=== PATIENT | male | born 1970 | race Caucasian/White ===

== ENCOUNTER 2019-07-29 10:19 | Emergency (ER) | payer BC, SELFPAY ==
[2019-07-29 10:37] VITALS: BP 113/78; PULSE 79; RESP 20; TEMP 37; O2SAT 98
--- NOTE | 2019-07-29 10:40 | ED.URI ---
HPI - URI/Sore Throat General Chief Complaint: Upper Respiratory Infection Stated Complaint: sore throat History of Present Illness HPI Narrative: This is a 49-year-old male comes in complaining of a sore throat states that is been hurting for about 2 days a coworker was positive for strep throat. Patient states his throat is slightly sore denies taking anything since he drinks some warm tea today denies any fever nausea vomiting and/or diarrhea Related Data Allergies Allergy/AdvReac Type Severity Reaction Status Date / Time No Known Allergies Allergy Verified 07/29/19 10:40 Review of Systems Review of Systems: Narrative: CONSTITUTIONAL: Denies fever, chills, or sweats. EYES: Denies visual changes, positive redness, or discharge. ENT: positive rhinorrhea, congestion, positive sore throat, or otalgia. CARDIOVASCULAR:Denies chest pain, palpitations, or edema. RESPIRATORY: Positive cough or dyspnea. GASTROINTESTINAL: Denies abdominal pain, nausea, vomiting, or diarrhea. GENITOURINARY: Denies dysuria or hematuria. SKIN:[Denies rash or itching. MUSCULOSKELETAL:Denies back pain, joint pain, or myalgia. NEUROLOGIC: Denies headache, numbness, or weakness. PSYCHIATRIC:Denies anxiety or depression PMFSH Past Medical History Medical History (Updated 07/30/19 @ 00:00 by Jeremias Louise) Abdominal pain, generalized Social History Social History Smoking status: Never smoker Alcohol intake: current Comments At time as signature, I have reviewed and agree with nursing past medical, social, surgical and family history. Please see nursing chart for further information. There is no relevant family history pertinent to the presenting complaint. Exam Narrative: Exam Narrative: gENERAL:Well-appearing, well-nourished, and in no acute distress. HEAD:Normocephalic, atraumatic. EYES: PERRLA and EOMI. ENT: Nares clear, no rhinorrhea or epistaxis. Mucous membranes moist. Slight pharyngeal erythema nasal drainage NECK: Supple. CHEST: Clear to auscultation. No respiratory distress. HEART: Regular rate and rhythm. No murmur heard. Normal peripheral pulses. ABDOMEN: Soft, nontender, nondistended, normal active bowel sounds. EXTREMITIES: Normal range of motion. No edema. SKIN: Warm, dry, no rash. NEURO: No focal deficits. Alert and oriented x3. Course Vital Signs Vital signs: Vital Signs Temperature 98.6 F 07/29/19 10:37 Pulse Rate 79 07/29/19 10:37 Respiratory Rate 20 07/29/19 10:37 Blood Pressure 113/78 07/29/19 10:37 Pulse Oximetry 98 07/29/19 10:37 Temperature 98.6 F 07/29/19 10:37 Pulse Rate 79 07/29/19 10:37 Respiratory Rate 20 07/29/19 10:37 Blood Pressure 113/78 07/29/19 10:37 Pulse Oximetry 98 07/29/19 10:37 Discharge Plan Discharge Clinical Impression: Pharyngitis, Strep sore throat Patient Disposition: Home, Self-Care Condition: Stable Instructions: Antibiotic Form, Pharyngitis (ED), Strep Throat (ED) Additional Instructions: Change tooth brush in 2 days, gargle warm salt water, drink plenty of fluids Prescriptions: New loratadine [Claritin] 10 mg tablet 10 mg PO DAILY PRN (Reason: allergy symptoms) Qty: 30 RF: 0 amoxicillin 500 mg tablet 500 mg PO Q12H 10 Days Qty: 20 RF: 0 Follow-up/Referrals: Oswaldo Berry MD [Primary Care Provider] - Stand Alone Forms: Work/School Release IP Time of Disposition: 10:53 Discharge Date/Time: 07/29/19 10:58
== END 2019-07-29 10:58 | disposition home or self-care (01) ==
PROVIDERS: Emergency Provider Nurse Practitioner Family; PCP Family Medicine
DX: J02.0 Streptococcal pharyngitis (principal)
CPT/HCPCS: 87880; 99213; G0463

== ENCOUNTER → 2020-11-17 00:07 | Outpatient (CLI) | payer BC, SELFPAY ==
[2020-11-17 16:57] LABS: SARS-CoV-2 RNA PCR Negative
== END ==
PROVIDERS: PCP Family Medicine; Visit Provider Internal Medicine Gastroenterology
DX: Z01.812 Encounter for preprocedural laboratory examination (principal); Z20.822 Contact with and (suspected) exposure to COVID-19
CPT/HCPCS: C9803; U0003; U0005

== ENCOUNTER 2020-11-21 01:51 | Day surgery (SDC) | payer BC, SELFPAY ==
[2020-10-31 13:01] VITALS: BMI 24.0
[2020-11-21 07:48] VITALS: BP 114/85; PULSE 87; RESP 16; TEMP 36.3; O2SAT 97; BMI 24.2
[2020-11-21] MEDS: LACTATED RINGERS 1,000 ML 150 ML IV CONT (08:03)
--- NOTE | 2020-11-21 08:10 | P.CONGI_ITS ---
Assessment and Plan Assessment and plan (1) Hematochezia: Code(s): K92.1 - Melena Status: Acute Assessment and Plan: Patient with hematochezia that occurred 2 months ago. Peers be associated with more difficult hard bowel movement. Given his age of 50, plan is for screening colonoscopy. High-fiber diet is advised. He may benefit from FiberCon supplements. Anusol or similar soothing agent the rectal area is encouraged if needed. Colonoscopy to be performed results will follow separately GI Consult Note Consult date/time: 11/21/20 08:10 HPI: Jose Luis Stringer is a 50 year old male Presents because of rectal bleeding. Patient reports that 2 months ago he had a difficult bowel movement. Apparently strained at stool. Subsequently had bright red blood per rectum. For several weeks subsequently he had rectal discomfort. Burning was identified. Patient initially treated this with [id number] cortisone suppositories. More recently he has tried Vaseline. Over the last 2-3 weeks pain is gone away. He no longer has difficulty. His bowel habits in general a re normal. He denies any change in the color of his stools. There has been no melenic stools. No additional bleeding noted. His family history is noncontributory. Patient reports that his weight appetite are currently normal. Patient is referred for colonoscopy to assess rectal bleeding. Review of Systems Review of Systems: All systems reviewed & are unremarkable except as noted in HPI and below PMFSH Past Medical History Medical History (System 10/16/20 @ 13:43 by Sofi Rivera) Abdominal pain, generalized Encounter for screening for malignant neoplasm of prostate Hematochezia Family History Family History (System 10/16/20 @ 13:43 by Sofi Rivera) Father Patient's father is in good health Mother Family history of type 2 diabetes mellitus Diabetes mellitus Other Hypertension Social History Social History (System 10/16/20 @ 13:43 by Sofi Rivera) Smoking status: Never smoker Alcohol intake: current Alcohol use details: socially Substance use: never Substance use type: does not use Living arrangements: with family Gender identity (if verbalized by the patient): Male Spiritual care concerns: No Meds Home Medications and Allergies Home Medications Medication Instructions Recorded Confirmed Type No Home Medications 10/31/20 11/21/20 History Allergies Allergy/AdvReac Type Severity Reaction Status Date / Time No Known Allergies Allergy Verified 11/21/20 07:46 Vital Signs Vital Signs - 24 hr 11/21/20 07:48 Temperature 97.4 F L Pulse Rate 87 Respiratory Rate 16 Blood Pressure 114/85 Pulse Oximetry 97 Exam Narrative: Exam Narrative: Physical exam reveals patient be alert. Vital signs stable. HEENT exam is unremarkable. Patient is anicteric. Lungs are clear to auscultation and percussion. Heart is without murmur or extra sounds. Abdominal exam bowel sounds are present soft nontender with no organomegaly. Digital external rectal exam is normal.
--- NOTE | 2020-11-21 08:20 | WPDANESEPPF ---
Anes - Initial Pre Proc Eval Procedure: Operation Date: 11/21/20 08:30 Proposed Procedures p Colonoscopy - Rome Tucker MD Date/Time: 11/21/20 08:20 Surgeon: Rome Tucker MD Pre Op Diagnosis: melena Patient Data Age: 50 Gender: M Height: 1.78 m Weight: 76.6 kg Last Vital Signs Temp 97.4 F L 11/21/20 07:48 Pulse 87 11/21/20 07:48 Resp 16 11/21/20 07:48 BP 114/85 11/21/20 07:48 Pulse Ox 97 11/21/20 07:48 Allergies Allergy/AdvReac Type Severity Reaction Status Date / Time No Known Allergies Allergy Verified 11/21/20 07:46 Home Medications Medication Instructions Recorded Confirmed Type No Home Medications 10/31/20 11/21/20 History Patient hx anesthesia problems: none Family hx anesthesia problems: none PMFSH Past Medical History Medical History (System 10/16/20 @ 13:43 by Sofi Rivera) Abdominal pain, generalized Encounter for screening for malignant neoplasm of prostate Hematochezia Family History Family History (System 10/16/20 @ 13:43 by Sofi Rivera) Father Patient's father is in good health Mother Family history of type 2 diabetes mellitus Diabetes mellitus Other Hypertension Social History Social History (System 10/16/20 @ 13:43 by Sofi Rivera) Smoking status: Never smoker Alcohol intake: current Alcohol use details: socially Substance use: never Substance use type: does not use Living arrangements: with family Gender identity (if verbalized by the patient): Male Spiritual care concerns: No Anes - Eval Final PreProcedure Day of Procedure 11/21/20 08:20 Patient weight: normal Heart: regular rate and rhythm Lungs: clear to auscultation Airway: Mallampati scale class II Neurological: alert and oriented Last oral intake: >/= 8 hours ASA classification: I Emergent: no Anesthetic plan: proceed Anesthesia type and monitoring: general GIVS and standard monitoring Informed Consent: The patient's anesthetic plan and its attendant risks and benefits were discussed with the patient/family/POA. Questions were solicited and answers provided to the satisfaction of the patient/family/POA.
[2020-11-21 08:48] VITALS: BP 115/76; PULSE 95; RESP 28; O2SAT 97
[2020-11-21 08:58] VITALS: BP 110/85; PULSE 89; RESP 20; O2SAT 97
[2020-11-21 09:08] VITALS: BP 124/89; PULSE 77; RESP 16; O2SAT 98
== END 2020-11-21 09:26 | disposition home or self-care (01) ==
PROVIDERS: PCP Family Medicine; Visit Provider Internal Medicine Gastroenterology
PROC: 0DJD8ZZ Inspection of Lower Intestinal Tract, Via Natural or Artificial Opening Endoscopic (ICD-10-PCS; CPT 45378; principal; 2020-11-21 08:30)
DX: Z12.11 Encounter for screening for malignant neoplasm of colon (principal); K92.1 Melena; D12.5 Benign neoplasm of sigmoid colon
CPT/HCPCS: 45385; 88305; J2704; J7120

== ENCOUNTER 2020-11-21 23:36 | Emergency (ER) | payer BC, SELFPAY ==
[2020-11-21 23:46] VITALS: BP 138/96; PULSE 86; RESP 16; TEMP 36.7; O2SAT 98
[2020-11-22] VITALS: BP 128/90; PULSE 84; RESP 16; O2SAT 97
[2020-11-22 00:09] LABS: Basophils Absolute Auto 0.1 K/mm3 (0.0-0.1); Basophils Percent Auto 0.4 % (0.2-1.2); Eosinophils Absolute Auto 0.1 K/mm3 (0-0.3); Hematocrit 45.2 % (42.0-52.0); Immature Granulocyte Absolute 0.05 K/mm3 (0.00-0.031); Immature Granulocyte Percent A 0.4 % (0-0.5); Lymphocytes Absolute Auto 3.07 K/mm3 (0.9-3.2); Lymphocytes Percent Auto 24.6 % (18.3-44.2); Mean Corpuscular HGB Conc 33.2 g/dl (32-36); Mean Corpuscular Hemoglobin 30.4 pg (26-34); Mean Corpuscular Volume 91.7 fl (80-100); Mean Platelet Volume 9.8 fl (7.4-10.4); Monocytes Absolute Auto 1.1 K/mm3 (0.1-0.6); Monocytes Percent Auto 8.8 % (2.6-8.5); Neutrophils Absolute Auto 8.1 K/mm3 (1.3-6.7); Neutrophils Percent Auto 64.8 % (45.5-73.1); Platelet Count Result 298 k/mm3 (150-375); Red Blood Count 4.93 M/mm3 (4.6-6.20); Red Cell Distribution Width 12.3 % (11.5-14.5); White Blood Count 12.5 K/mm3 (4.5-10.0)
[2020-11-22 00:10] LABS: Alanine Aminotransferase 22 U/L (4-50); Albumin Level 4.8 g/dL (3.5-5.1); Alkaline Phosphatase 74 U/L (38-126); Anion Gap 12 mmol/L (8-16); Aspartate Amino Transferase 24 U/L (17-59); Bilirubin,Total 0.9 mg/dL (0.2-1.3); Blood Urea Nitrogen 18 mg/dL (9-20); Calcium 9.8 mg/dL (8.4-10.2); Carbon Dioxide 22 mmol/L (22-30); Chloride 106 mmol/L (98-107); Estimated Glomerular Filt Rate > 60; Glucose 124 mg/dL (75-110); Lipase 64 U/L (23-300); Potassium 4.1 mmol/L (3.4-5.0); Sodium 140 mmol/L (137-145)
--- NOTE | 2020-11-22 00:18 | ED.GIBLEED ---
HPI - GI Bleed General Chief complaint: Abdominal Pain Stated complaint: blood in stool Time Seen by Provider: 11/21/20 23:45 Source: patient Mode of arrival: ambulatory Limitations: no limitations History of Present Illness HPI Narrative: Patient is a 50-year-old male complaining of blood in his stools, x2 episodes. Patient states that he had diarrhea, blood mixed with stools that started prior to arrival. Patient states that he had a colonoscopy earlier today done by Dr. Hunt, polyps were removed. Patient denies any abdominal pain, nausea, vomiting, fever or chills. Related Data Home Medications Medication Instructions Recorded Confirmed No Home Medications 10/31/20 11/21/20 Allergies Allergy/AdvReac Type Severity Reaction Status Date / Time No Known Allergies Allergy Verified 11/21/20 07:46 Review of Systems Review of Systems: All systems reviewed & are unremarkable except as noted in HPI and below Constitutional: Constitutional: Denies body ache(s), Denies chills, Denies excessive sweating, Denies fatigue, Denies fever(s), Denies headache(s), Denies lethargy, Denies malaise, Denies weakness and Denies weight loss Eyes: Eyes: Denies blurry vision, Denies change in vision and Denies loss of vision ENT: Denies dizziness, Denies ear discharge, Denies headache(s), Denies lip swelling, Denies epistaxis, Denies nasal congestion, Denies neck pain, Denies throat swelling and Denies tongue swelling Cardiovascular: Cardiovascular: Denies chest pain, Denies chest pain at rest, Denies chest pain with activity, Denies diaphoresis, Denies rapid heart rate, Denies edema, Denies irregular heart rhythm, Denies lightheadedness, Denies palpitations, Denies dyspnea and Denies dyspnea on exertion Respiratory: Respiratory: Denies chest congestion, Denies cough, Denies hemoptysis, Denies dyspnea and Denies dyspnea on exertion Gastrointestinal: Gastrointestinal: Denies abdominal pain, Denies melena, Denies diarrhea, Denies nausea, Denies vomiting and Denies hematemesis Musculoskeletal: Musculoskeletal: Denies abnormal gait, Denies deformity, Denies joint swelling, Denies limited range of motion, Denies neck pain and Denies numbness Neurologic: Denies Abnormal speech present, Denies abnormal gait, Denies confusion, Denies dizziness, Denies headache(s), Denies focal weakness, Denies loss of vision, Denies numbness, Denies Other visual disturbances, Denies Sensory deficit (Neuro) and Denies weakness Psychiatric: Psychiatric: Denies confusion, Denies depression, Denies auditory hallucinations, Denies homicidal ideation and Denies suicidal ideation Endocrine: Endocrine: Denies cold intolerance, Denies excessive sweating, Denies fatigue, Denies heat intolerance and Denies palpitations Hematologic/Lymphatic: Hematologic/Lymphatic: Denies easy bleeding and Denies easy bruising Allergic/Immunologic: Allergic/Immunologic: Denies lip swelling, Denies throat swelling and Denies tongue swelling PMFSH Past Medical History Medical History Abdominal pain, generalized Encounter for screening for malignant neoplasm of prostate Hematochezia Family History Family History Father Patient's father is in good health Mother Family history of type 2 diabetes mellitus Diabetes mellitus Other Hypertension Social History Social History Smoking status: Never smoker Alcohol intake: current Substance use: never Substance use type: does not use Gender identity (if verbalized by the patient): Male Spiritual care concerns: No Exam Const: General: cooperative, healthy appearing, comfortable, no acute distress, well developed, alert and awake; No confusion Orientation/consciousness: oriented to person, oriented to place, oriented to time, patient oriented x3 and No confusion
[2020-11-22] MEDS: SODIUM CHLORIDE 0.9% IV 1,000 ML 999 ML IV CONT (00:40)
[2020-11-22 01:00] VITALS: BP 122/97; PULSE 80; RESP 16; O2SAT 97
[2020-11-22 01:50] VITALS: BP 124/94; PULSE 79; RESP 16; O2SAT 97
== END 2020-11-22 01:50 | disposition home or self-care (01) ==
PROVIDERS: Emergency Provider Emergency Medicine; PCP Family Medicine
DX: K62.5 Hemorrhage of anus and rectum (principal); Z98.890 Other specified postprocedural states
CPT/HCPCS: 36415; 80053; 83690; 85025; 96360; 99284; J7030

== ENCOUNTER 2021-09-02 10:02 | Emergency (ER) | payer BC, SELFPAY ==
--- NOTE | 2021-09-02 10:16 | ED.URI ---
HPI - URI/Sore Throat General Chief Complaint: Upper Respiratory Infection Stated Complaint: cold symptoms Time Seen by Provider: 09/02/21 10:16 Source: patient Mode of arrival: ambulatory Limitations: no limitations History of Present Illness HPI Narrative: Mr. Stringer is a 51-year-old male patient presenting to the clinic today with complaints of cold symptoms x4 days. He reports symptoms started on Thursday. Has had a fever of 101 ?F. Has been taking Benadryl for congestion reports body aches, nasal congestion, sore throat that has now subsided, chills, and fever. No known exposure to anyone with Covid, flu, or strep. Did a at home Covid test and it was negative. MD elicited complaint: sore throat and nasal congestion Related Data Home Medications Medication Instructions Recorded Confirmed No Home Medications 10/31/20 03/19/21 Allergies Allergy/AdvReac Type Severity Reaction Status Date / Time No Known Allergies Allergy Verified 09/02/21 10:33 Review of Systems Review of Systems: Pertinent positives per HPI. Patient denies any rash, headache, visual changes, dizziness, cough, shortness of breath, chest pain, palpitations, nausea, vomiting, diarrhea, constipation, abdominal pain, or any urinary issues. PMFSH Past Medical History Medical History Abdominal pain, generalized Encounter for screening for malignant neoplasm of prostate Hematochezia Family History Family History Father Patient's father is in good health Mother Family history of type 2 diabetes mellitus Diabetes mellitus Other Hypertension Social History Social History Alcohol intake: current Alcohol use details: socially Substance use: never Substance use type: does not use Gender identity (if verbalized by the patient): Male Spiritual care concerns: No Comments At the time of my signature, I reviewed and agree with the nursing past medical, surgical, social, and family history. There is no relevant family history pertinent to the patient complaint. Exam Narrative: General: Well-developed, well nourished, in no apparent distress Head: Normocephalic, atraumatic Eyes: Pupils equally round and reactive to light bilaterally, EOM intact, sclera and conjunctive clear, no discharge, lids normal Ears: TMs intact and dull, ear canals clear, no drainage, grossly hearing normal. Nose: Nares patent, clear nasal discharge, mild inflammation, no sinus tenderness. Mouth: Oral pharynx without lesions or masses, good dentition, MMM. Oropharynx red/postnasal drip Neck: Supple, trachea midline, no enlargement of anterior or posterior cervical nodes, no thyroid masses or goiter palpable. Cardio: Regular rate and rhythm, s1 and s2 normal, no murmur appreciated. Resp: Clear to auscultation bilaterally, no rhonchi, rales, wheezing or rubs Course Course Emergency Course: Portions of this record may have been created with voice recognition software. Level of Care: Express Care Visit Vital Signs Vital signs: Vital signs reviewed MDM - URI/Sore Throat MDM Narrative Medical decision making narrative: At the time of visit patient is resting comfortably on the exam table. He was reporting fever, chills, sore throat that has resolved, body aches, and nasal congestion. Symptoms have been ongoing for approximately 4 days. Has done a at home Covid test and it was negative. Influenza testing completed in the clinic and was negative. I suspect viral syndrome, supportive measures discussed with patient and he voiced understanding Differential Diagnosis Differential diagnosis: Likely upper respiratory infection, sinusitis, viral infection, bronchitis, influenza, pharyngitis and other (Covid) Discharge Plan Discharge Clinical Impression: Viral syndrome
[2021-09-02 10:28] VITALS: BP 122/87; PULSE 81; RESP 18; TEMP 36.7; O2SAT 100
== END 2021-09-02 10:54 | disposition home or self-care (01) ==
PROVIDERS: Emergency Provider Nurse Practitioner Family; PCP Family Medicine
DX: B34.9 Viral infection, unspecified (principal)
CPT/HCPCS: 87804; 99213; G0463

== ENCOUNTER → 2023-04-03 13:46 | Outpatient (CLI) | payer BC, SELFPAY ==
--- NOTE | ~2023-04-03 | MR_ITS ---
EXAMINATION: MR shoulder RT wo con DATE: 04/03/2023 14:26 INDICATION: Right shoulder adhesive capsulitis TECHNIQUE: Magnetic resonance imaging (MRI) of the right shoulder was performed without intravenous c ontrast. Sequences included axial PD-weighted FS FSE, coronal oblique PD-weighted FS FSE, coronal obl ique T2-weighted FS FSE, sagittal PD-weighted FS FSE, and sagittal T1-weighted SE. COMPARISON: None. FINDINGS: Coracoacromial arch: The acromion undersurface is curved in morphology (type II). The coracoacromial ligament is normal. A cromioclavicular joint is normal. Rotator cuff: Mild tendinopathy without tear along the superior facet insertion of the distal supraspinatus tendon. The infraspinatus, teres minor and subscapularis tendons are normal. Normal rotator cuff muscle bulk and signal. Rotator cuff interval appears unremarkable with normal appearance to the biceps luba s ling. Biceps tendon, glenoid labrum and glenohumeral cartilage: Long head of the biceps tendon is normal. The posterior superior to posterior labrum is diminutive li isac related to chronic labral degeneration with the 9:00-10:00 position of the labrum largely replac ed by a marginal osteophyte. No discrete labral tear. Diffuse mild partial-thickness cartilage loss w ith smooth chondral surface along the glenoid and inferomedial aspect of the humeral head. Fluid: Physiologic amount of fluid in the glenohumeral joint and biceps tendon sheath. No loose osteochondr al bodies. Small amount of fluid in the subacromial/subdeltoid bursa consistent with mild bursitis. Bones/other: Small low signal bone marrow island at the humeral head. Otherwise normal marrow signal with no edema , fracture or abnormal marrow replacing process. There is no evident capsular thickening at the axill beverley recess. IMPRESSION: 1. Mild right glenohumeral osteoarthritis with likely chronic degeneration of the diminutive superior to posterior superior glenoid labrum. 2. Mild supraspinatus tendinopathy without tear. 3. No thickening of the capsule at the axillary recess or abnormal soft tissue density at the rotator cuff interval to elevate suspicion for adhesive capsulitis although this is ultimately a clinical di agnosis. Reviewed, dictated and finalized at location [facility]. [employer] IMPRESSION: 1. Mild right glenohumeral osteoarthritis with likely chronic degeneration of t he diminutive superior to posterior superior glenoid labrum. 2. Mild supraspinatus tendinopathy without tear. 3. No thickening of the capsule at the axillary recess or abnormal soft tissue density at the rotator cuff interval to elevate suspicion for adhesive capsulit is although this is ultimately a clinical diagnosis.
== END ==
PROVIDERS: PCP Family Medicine; Visit Provider Orthopaedic Surgery
DX: M75.01 Adhesive capsulitis of right shoulder (principal); S46.119A Strain of muscle, fascia and tendon of long head of biceps, unspecified arm, initial encounter; X58.XXXA Exposure to other specified factors, initial encounter; M19.011 Primary osteoarthritis, right shoulder
CPT/HCPCS: 73221

== ENCOUNTER 2023-05-24 09:08 | Emergency (ER) | payer BC, SELFPAY ==
[2023-05-24 09:24] VITALS: BP 138/87; PULSE 75; RESP 16; TEMP 36.1; O2SAT 100
--- NOTE | 2023-05-24 09:57 | ED.GENADULT ---
HPI - General Adult General Chief complaint: Upper Respiratory Infection Stated complaint: Sore Throat,Lt Ear Irritation Source: patient Mode of arrival: ambulatory Limitations: no limitations History of Present Illness HPI narrative: Patient presents for evaluation of sore throat for last two days. Reports some pressure in left ear in a very mild nonproductive cough. No fever, chills, nausea vomiting, shortness of breath. His daughter and recently had some GI symptoms which they attributed to food intake. No other sick contacts to his knowledge. He does not smoke. Related Data Allergies Allergy/AdvReac Type Severity Reaction Status Date / Time No Known Allergies Allergy Verified 05/24/23 09:31 Review of Systems Review of Systems: CONSTITUTIONAL: Denies fever, chills, or sweats. EYES: Denies visual changes, redness, or discharge. ENT: reports sore throat and pressure in the left ear CARDIOVASCULAR: Denies chest pain, palpitations, or edema. RESPIRATORY: Reports very mild occasional cough. Denies dyspnea. GASTROINTESTINAL: Denies abdominal pain, nausea, vomiting, or diarrhea. GENITOURINARY: Denies dysuria or hematuria. SKIN: Denies rash or itching. MUSCULOSKELETAL: Denies back pain, joint pain, or myalgia. NEUROLOGIC: Denies headache, numbness, dizziness, or weakness. PSYCHIATRIC: Denies anxiety or depression. [facility] Past Medical History Medical History Abdominal pain, generalized Adhesive capsulitis of right shoulder Encounter for screening for malignant neoplasm of prostate Hematochezia Labral tear of long head of biceps tendon Rotator cuff tendonitis Surgical History Surgical History S/P inguinal hernia repair robotic assisted lap R ing her rep w/ mesh 2015 Family History Family History Father Patient's father is in good health Mother Family history of type 2 diabetes mellitus Diabetes mellitus Other Hypertension Social History Social History Smoking status: Never smoker Alcohol intake: current Drinks per week: 2 Alcohol use details: socially Substance use: never Substance use type: does not use Lack of Transportation: No Lack of Food: Never True Current Housing: I Have Housing Concerned About Future Housing: No Difficulty Paying Gas/Electric Bills: No Difficulty Paying for Meds: No Currently Unemployed: No Education: Master's Degree or Higher Difficulty w/ Childcare or Family Care: No Living arrangements: with family Occupation/Education: occupation Gender identity (if verbalized by the patient): Male Spiritual care concerns: No Exam Narrative: GENERAL: Well-appearing, well-nourished, and in no acute distress. HEAD: Normocephalic, atraumatic. EYES: PERRLA and EOMI. ENT: Nares clear, no rhinorrhea or epistaxis. Mucous membranes moist. Mild posterior pharyngeal erythema without exudate. Uvula is midline. Bilateral TMs pearly thomas nonbulging NECK: Supple. No adenopathy or masses. No carotid bruits or JVD CHEST: Clear to auscultation. No respiratory distress. No wheezes rales or rhonchi HEART: Regular rate and rhythm. No murmur heard. Normal peripheral pulses. ABDOMEN: Soft, nontender, nondistended, normal active bowel sounds. EXTREMITIES: Normal range of motion. No edema. SKIN: Warm, dry, no rash. NEURO: No focal deficits. Alert and oriented x3. PSYCH: Normal mood and affect. Course Course Emergency Course: This is a 53-year-old male who presented for evaluation of sore throat. Strep, COVID, flu were all negative. He is concerned about his insurance changing at the end of today. He would like a prescription for antibiotics. Will send throat culture. Start amoxicillin. Over-the-
== END 2023-05-24 10:24 | disposition home or self-care (01) ==
PROVIDERS: Emergency Provider Nurse Practitioner; PCP Family Medicine
DX: J02.9 Acute pharyngitis, unspecified (principal); Z20.822 Contact with and (suspected) exposure to COVID-19
CPT/HCPCS: 87081; 87426; 87804; 87880; 99213; C9803; G0463

== ENCOUNTER 2023-08-03 18:07 | Emergency (ER) | payer BC, SELFPAY ==
[2023-08-03 18:21] VITALS: BP 127/79; PULSE 71; RESP 18; TEMP 37.2; O2SAT 100
--- NOTE | 2023-08-03 18:29 | ED.URI ---
HPI - URI/Sore Throat General Chief Complaint: Upper Respiratory Infection Stated Complaint: sorethroat,lt ear discomfort Time Seen by Provider: 08/03/23 18:29 Source: patient Mode of arrival: ambulatory Limitations: no limitations History of Present Illness HPI Narrative: 53-year-old male presents with complaint of sore throat, fatigue, headache, body aches starting yesterday. Reports mild congestion and cough. Afebrile. All systems reviewed and negative except as noted above. Related Data Allergies Allergy/AdvReac Type Severity Reaction Status Date / Time No Known Allergies Allergy Verified 08/03/23 18:25 Review of Systems Review of Systems: CONSTITUTIONAL: Denies fever, chills, or sweats. reports fatigue. EYES: Denies visual changes, redness, or discharge. ENT: Reports rhinorrhea, congestion, sore throat. Denies otalgia. CARDIOVASCULAR: Denies chest pain, palpitations, or edema. RESPIRATORY: Reports cough. Denies dyspnea. GASTROINTESTINAL: Denies abdominal pain, nausea, vomiting, or diarrhea. GENITOURINARY: Denies dysuria or hematuria. SKIN: Denies rash or itching. MUSCULOSKELETAL: Denies back pain, joint pain, or myalgia. NEUROLOGIC: Denies headache, numbness, or weakness. PSYCHIATRIC: Denies anxiety or depression. All other systems reviewed are negative, except as documented in HPI. [facility] Past Medical History Medical History Abdominal pain, generalized Adhesive capsulitis of right shoulder Encounter for screening for malignant neoplasm of prostate Hematochezia Labral tear of long head of biceps tendon Rotator cuff tendonitis Surgical History Surgical History S/P inguinal hernia repair robotic assisted lap R ing her rep w/ mesh 2015 Family History Family History Father Patient's father is in good health Mother Family history of type 2 diabetes mellitus Diabetes mellitus Other Hypertension Social History Social History Smoking status: Never smoker Alcohol intake: current Drinks per week: 2 Alcohol use details: socially Substance use: never Substance use type: does not use Lack of Transportation: No Lack of Food: Never True Current Housing: I Have Housing Concerned About Future Housing: No Difficulty Paying Gas/Electric Bills: No Difficulty Paying for Meds: No Currently Unemployed: No Education: Master's Degree or Higher Difficulty w/ Childcare or Family Care: No Living arrangements: with family Occupation/Education: occupation Gender identity (if verbalized by the patient): Male Spiritual care concerns: No Comments At time of signature, agree with nursing past medical, surgical, social and family history. There is no relevant family history pertinent to the presenting complaint. Exam Narrative: GENERAL: This is a well-nourished, well-developed patient, in no apparent distress. HEAD: normocephalic, atraumatic. EYES: PERRL. Sclera clear/white. Vision is grossly intact. EARS: External ears normal, auditory canals clear and without drainage, TMs normal without perforation. Hearing grossly intact. NOSE: External nose normal with clear nasal drainage, nares without redness THROAT: Mucous membranes moist, erythema With mild swelling, no exudates. NECK: Neck supple, non-tender without lymphadenopathy, masses or thyromegaly. CARDIOVASCULAR: Regular rate and rhythm without murmurs, gallops, or rubs. RESPIRATORY: Clear to auscultation. Breath sounds equal bilaterally. No wheezes, rales, or rhonchi. SKIN: warm, Dry, intact with no suspicious lesions or rash, good texture and turgor. NEURO: awake, alert, and oriented to person, place and time. There were no obvious focal neurologic abnormalities. [facility]
== END 2023-08-03 19:01 | disposition home or self-care (01) ==
PROVIDERS: Emergency Provider Nurse Practitioner Family; PCP Family Medicine
DX: J02.9 Acute pharyngitis, unspecified (principal); Z20.822 Contact with and (suspected) exposure to COVID-19
CPT/HCPCS: 87081; 87426; 87804; 87880; 99213; G0463

== ENCOUNTER 2023-10-26 16:55 | Emergency (ER) | payer BC, SELFPAY ==
--- NOTE | 2023-10-26 17:01 | ED.URI ---
HPI - URI/Sore Throat General Chief Complaint: Upper Respiratory Infection Stated Complaint: Cold symptoms Time Seen by Provider: 10/26/23 17:01 Source: patient Mode of arrival: ambulatory Limitations: no limitations History of Present Illness HPI Narrative: Jose Luis is a 53-year-old male patient presenting to the clinic today with complaints of cold symptoms. He reports he has sinus congestion, cough, left-sided scratchy throat, with some left ear pain. States this has been going on for 3-4 days. Started having a nonproductive cough today. Denies any fever or chills. States he is going out of town on Thursday to do a trip in [place]. Is concerned if he needs antibiotics. MD elicited complaint: cough, sore throat, nasal congestion and sinus pain Related Data Allergies Allergy/AdvReac Type Severity Reaction Status Date / Time No Known Allergies Allergy Verified 10/26/23 17:06 Review of Systems Review of Systems: Pertinent positives per HPI. Patient denies any fever, chills, rash, visual changes, dizziness, shortness of breath, chest pain, palpitations, nausea, vomiting, diarrhea, constipation, abdominal pain, or any urinary issues. [facility] Past Medical History Medical History Abdominal pain, generalized Adhesive capsulitis of right shoulder Encounter for screening for malignant neoplasm of prostate Hematochezia History of colon polyps Labral tear of long head of biceps tendon Rotator cuff tendonitis Surgical History Surgical History S/P inguinal hernia repair robotic assisted lap R ing her rep w/ mesh 2015 Family History Family History Father Patient's father is in good health Mother Family history of type 2 diabetes mellitus Diabetes mellitus Other Hypertension Social History Social History Smoking status: Never smoker Alcohol intake: current Drinks per week: 2 Alcohol use details: socially Substance use: never Substance use type: does not use Lack of Transportation: No Lack of Food: Never True Current Housing: I Have Housing Concerned About Future Housing: No Difficulty Paying Gas/Electric Bills: No Difficulty Paying for Meds: No Currently Unemployed: No Education: Master's Degree or Higher Difficulty w/ Childcare or Family Care: No Living arrangements: with family Occupation/Education: occupation Gender identity (if verbalized by the patient): Male Spiritual care concerns: No Comments At the time of my signature, I reviewed and agree with the nursing past medical, surgical, social, and family history. There is no relevant family history pertinent to the patient complaint. Exam Narrative: General: Well-developed, well nourished, in no apparent distress Head: Normocephalic, atraumatic Eyes: Pupils equally round and reactive to light bilaterally, EOM intact, sclera and conjunctive clear, no discharge, lids normal Ears: TMs intact and congested, ear canals clear, no drainage, grossly hearing normal. Nose: Nares patent, clear discharge, no inflammation, no sinus tenderness. Mouth: Oral pharynx without lesions or masses, good dentition, MMM. Postnasal drip Neck: Supple, trachea midline, no enlargement of anterior or posterior cervical nodes, no thyroid masses or goiter palpable. Cardio: Regular rate and rhythm, s1 and s2 normal, no murmur appreciated. Resp: Clear to auscultation bilaterally, no rhonchi, rales, wheezing or rubs Course Course Emergency Course: Portions of this record may have been created with voice recognition software. Level of Care: Express Care Visit Vital Signs Vital signs: Vital Signs Temperature 36.6 C 10/26/23 17:04 Pulse Rate 61 10/26/23 17:04 Respiratory Rate 18 10/26/23
[2023-10-26 17:04] VITALS: BP 121/80; PULSE 61; RESP 18; TEMP 36.6; O2SAT 98
== END 2023-10-26 17:27 | disposition home or self-care (01) ==
PROVIDERS: Emergency Provider Nurse Practitioner Family; PCP Family Medicine
DX: J06.9 Acute upper respiratory infection, unspecified (principal); R05.9 Cough, unspecified
CPT/HCPCS: 87081; 87880; 99213; G0463

== ENCOUNTER 2023-12-11 00:37 | Day surgery (SDC) | payer BC, SELFPAY ==
[2023-12-01 09:33] VITALS: BMI 23.7
[2023-12-11 07:39] VITALS: BP 116/77; PULSE 108; RESP 20; TEMP 36.3; O2SAT 99; BMI 24.0
[2023-12-11] MEDS: LACTATED RINGERS 1,000 ML 150 ML IV CONT (07:44)
--- NOTE | 2023-12-11 07:54 | WPDANESEPPF ---
Anes - Initial Pre Proc Eval Procedure: Operation Date: 12/11/23 09:00 Proposed Procedures p Colonoscopy - Tyron Callaway MD Date/Time: 12/11/23 07:54 Surgeon: Tyron Callaway MD Pre Op Diagnosis: Personal hx. of colon polyps Patient Data Age: 53 Gender: M Height: 1.78 m Weight: 75.9 kg Last Vital Signs Temp 97.3 F L 12/11/23 07:39 Pulse 108 H 12/11/23 07:39 Resp 20 12/11/23 07:39 BP 116/77 12/11/23 07:39 Pulse Ox 99 12/11/23 07:39 O2 Del Method Room Air 12/11/23 07:39 Allergies Allergy/AdvReac Type Severity Reaction Status Date / Time No Known Allergies Allergy Verified 12/11/23 07:38 Home Medications Medication Instructions Recorded Confirmed Type No Home Medications 12/11/23 12/11/23 History Patient hx anesthesia problems: none Family hx anesthesia problems: none Results Review: All pre-operative results and documents have been reviewed as part of the pre-operative evaluation. [facility] Past Medical History Medical History Abdominal pain, generalized Adhesive capsulitis of right shoulder Encounter for screening for malignant neoplasm of prostate Hematochezia History of colon polyps Labral tear of long head of biceps tendon Rotator cuff tendonitis Surgical History Surgical History S/P inguinal hernia repair robotic assisted lap R ing her rep w/ mesh 2015 Family History Family History Father Patient's father is in good health Mother Family history of type 2 diabetes mellitus Diabetes mellitus Other Hypertension Social History Social History Smoking status: Never smoker Alcohol intake: current Drinks per week: 3 Alcohol use details: socially Substance use: never Substance use type: does not use Lack of Transportation: No Lack of Food: Never True Current Housing: I Have Housing Concerned About Future Housing: No Difficulty Paying Gas/Electric Bills: No Difficulty Paying for Meds: No Currently Unemployed: No Education: Master's Degree or Higher Difficulty w/ Childcare or Family Care: No Living arrangements: with family Occupation/Education: occupation Gender identity (if verbalized by the patient): Male Spiritual care concerns: No Anes - Eval Final PreProcedure Day of Procedure 12/11/23 07:54 Patient weight: normal Heart: regular rate and rhythm Lungs: clear to auscultation Airway: Mallampati scale class II Neurological: alert and oriented Last oral intake: >/= 8 hours ASA classification: I Emergent: no Anesthetic plan: proceed Anesthesia type and monitoring: general GIVS and standard monitoring Results Review: All pre-operative results and documents have been reviewed as part of the pre-operative evaluation. Pt active w walking 4 fos, no cp or sob. Informed Consent: The patient's anesthetic plan and its attendant risks and benefits were discussed with the patient/family/POA. Questions were solicited and answers provided to the satisfaction of the patient/family/POA.
--- NOTE | 2023-12-11 07:58 | PM.HPGS ---
History of Present Illness History of Present Illness Consent: Risks, benefits, and alternatives have been discussed and questions answered. Patient agrees to proceed with procedure. Chief complaint: Personal hx. of colon polyps Narrative: Jose Luis Stringer is a 53 year old male with colon polyp 3 years ago Review of Systems Review of Systems: All systems reviewed & are unremarkable except as noted in HPI and below PMFSH Past Medical History Medical History Abdominal pain, generalized Adhesive capsulitis of right shoulder Encounter for screening for malignant neoplasm of prostate Hematochezia History of colon polyps Labral tear of long head of biceps tendon Rotator cuff tendonitis Surgical History Surgical History S/P inguinal hernia repair robotic assisted lap R ing her rep w/ mesh 2015 Family History Family History Father Patient's father is in good health Mother Family history of type 2 diabetes mellitus Diabetes mellitus Other Hypertension Social History Social History Smoking status: Never smoker Alcohol intake: current Drinks per week: 3 Alcohol use details: socially Substance use: never Substance use type: does not use Lack of Transportation: No Lack of Food: Never True Current Housing: I Have Housing Concerned About Future Housing: No Difficulty Paying Gas/Electric Bills: No Difficulty Paying for Meds: No Currently Unemployed: No Education: Master's Degree or Higher Difficulty w/ Childcare or Family Care: No Living arrangements: with family Occupation/Education: occupation Gender identity (if verbalized by the patient): Male Spiritual care concerns: No Meds Home Medications and Allergies Home Medications Medication Instructions Recorded Confirmed Type No Home Medications 12/11/23 12/11/23 History Allergies Allergy/AdvReac Type Severity Reaction Status Date / Time No Known Allergies Allergy Verified 12/11/23 07:38 Vital Signs Vital Signs - 24 hr 12/11/23 07:39 Temperature 97.3 F L Pulse Rate 108 H Respiratory Rate 20 Blood Pressure 116/77 Pulse Oximetry 99 Oxygen Delivery Room Air Exam Const: General: comfortable and no acute distress HENMT: Face/Nose/Sinus: Normal nares present Eyes: General: appearance normal, both eyes and all related structures Neck: Neck: no JVD Resp: Auscultation: clear to auscultation bilaterally Cardio: Rate: regular rate Rhythm: regular rhythm GI: Inspection: non-distended GI Palp: Yes Soft to palpation Skin: General skin exam: normal color Neuro: General: gait normal Speech: normal speech Extrem: General: normal to inspection Psych: Mental Status: mental status grossly normal Assessment and Plan Assessment and plan (1) History of colon polyps: Code(s): Z86.010 - Personal history of colonic polyps Status: Acute Assessment and Plan: colonoscopy
[2023-12-11 08:21] VITALS: BP 104/78; PULSE 96; RESP 20; O2SAT 96
[2023-12-11 08:31] VITALS: BP 106/78; PULSE 87; RESP 20; O2SAT 98
[2023-12-11 08:44] VITALS: BP 116/83; PULSE 76; RESP 20; O2SAT 98
== END 2023-12-11 08:45 | disposition home or self-care (01) ==
PROVIDERS: PCP Family Medicine; Referring Provider Nurse Practitioner Adult Health; Visit Provider Internal Medicine Gastroenterology
PROC: 0DJD8ZZ Inspection of Lower Intestinal Tract, Via Natural or Artificial Opening Endoscopic (ICD-10-PCS; CPT 45378; principal; 2023-12-11 09:00)
DX: Z12.11 Encounter for screening for malignant neoplasm of colon (principal); D12.2 Benign neoplasm of ascending colon; D12.0 Benign neoplasm of cecum; K64.8 Other hemorrhoids
CPT/HCPCS: 45385; 88305; J2704; J7120